=== PATIENT | female | born 1975 | race Two or more races ===

== ENCOUNTER 2024-04-01 22:18 | Emergency (ER) | payer BC, SELFPAY ==
[2024-04-01 22:29] VITALS: BP 138/90; PULSE 100; RESP 18; TEMP 37.1; O2SAT 99; BMI 36.3
--- NOTE | 2024-04-01 22:43 | PD.EDADULT ---
ED General RME/HPI General Chief complaint: General Adult/Misc Complain Stated complaint: NEEDLE STICK Time Seen by Provider: 04/01/24 22:24 Arrival date/time: 04/01/24 22:18 48 year old female present to emergency room with c/o of needle stick injury at work. LOCATION: finger SEVERITY: Symptoms are described as being severe with limitations on activities of daily living QUALITY: Symptoms are described as being dull or achy CONTEXT: needle stick injury DURATION/TIMING: The symptoms started approximately immediately prior to arrival ago and have been constant this then. ASSOCIATED SYMPTOMS: The patient is unable to identify any other associated symptoms. MODIFYING FACTORS: The patient is unable to identify any alleviating or aggravating symptoms. PERTINENT ROS: no fevers, no headache, no neck or chest pain, no unexplained nausea or vomiting, no focal neurological deficits REVIEW OF SYSTEMS: See History of Present Illness - with the exception of those mentioned in the history of present illness, all other systems reviewed and reported as negative GENERAL: In general the patient is awake, interactive, in an emergency department gurney. HEAD/EYES/EARS/NOSE/THROAT: normo-cephalic, atraumatic, mucus membranes are moist, anicteric, palpebral conjunctiva is pink, trachea is midline. CARDIOVASCULAR: regular rate and regular rhythm, no murmurs, heart sounds are not distant, strong pulses in all four extremities that are equal and symmetric bilateral upper and lower EXTREMITY: + left hand 2nd digit distal aspect, single puncture wound no nail plate involvement no tenderness to palpation over the long bones or large joints of the bilateral upper and lower extremities, no joint swelling, no joint erythema, no signs of trauma, no unilateral leg swelling and no peripheral edema. SKIN: warm, dry, well-perfused, no jaundice, no rash, no telangiectasias or petechia. PSYCH: calm, cooperative, no evidence of psychosis or agitation Related Data Home Medications ?Medication ?Instructions ?Recorded ?Confirmed metformin 500 mg tablet 500 mg PO QDAY 05/13/22 05/14/22 minoxidil 10 mg tablet 10 mg PO QDAY 05/13/22 05/14/22 Previous Rx's ?Medication ?Instructions ?Recorded ibuprofen 800 mg tablet 800 mg PO Q8H #21 tabs 05/14/22 Allergies Allergy/AdvReac Type Severity Reaction Status Date / Time No Known Allergies Allergy Verified 04/01/24 22:19 Course Course Course Narrative: Pt with needle stick exposure at work, patient whose needle it was does not have any known infectious diseases.? Acute hepatitis panel, HCG? and HIV panel was ordered today for baseline, pt to f/u with for repeat labs.? Discussed post exposure prophylaxis risks vs benefits, but exposure was approx 72 hours ago, and low risk, so patient declined.? F/u with workmen comp ? Return for Follow-up with occupational medicine or PCP for follow up labs in 6 weeks, 3 months, and 6 months. ? Quality Measures none Orders Category Date Time Status HCG,Qualitative Serum Stat Lab 04/01/24 22:40 Ordered HIV (1&2) Antibody Rapid Stat Lab 04/01/24 22:40 Ordered Hepatitis B Surface Ab Stat Lab 04/01/24 22:40 Ordered Hepatitis C Antibody Stat Lab 04/01/24 22:40 Ordered Vital Signs Vital signs: Vital Signs Temperature 98.7 F 04/01/24 22:29 Pulse Rate 100 04/01/24 22:29 Respiratory Rate 18 04/01/24 22:29 Blood Pressure 138/90 H 04/01/24 22:29 Pulse Oximetry (%) 99 04/01/24 22:29 Oxygen Delivery Method Room Air 04/01/24 22:29 MDM Patient data External records reviewed:: None Clinical information provided by:: patient Social determinants that could affect healthcare access:: none Patient has the following chronic illnesses:: none How is presenting disease/condition affected by chronic disease/condition?: no chronic disease Evaluation data The following diagnostics were reviewed and interpreted by me:: lab results Lab and/or radiology exams considered but not ordered:: none Interpretation Summary: exposure panel pending Medications Medications considered but not ordered:: none Medication administrations:: none Consultations Consultation(s) initiated? (list below): No Diagnosis Differential Diagnosis ED Complaint MDM: needle stick injury Most likely diagnosis given after review of the tests above:: needle stick injury Admission Indicated Admission indicated?: not indicated Explain why admission is indicated or not indicated:: none Admission Request Was there a request for admission?: No Disposition Plan Disposition Plan: Discharge Discharge Attestation Discharge Attestation: The patient and all family members were given an opportunity to ask questions and understood the discharge instructions. Discharge instructions specifically effects, indications for sooner follow up or return to the emergency department, and the expected course of current diagnosis. Patient condition: Stable Medical Decision Making Differential Diagnosis Differential Diagnosis: needle stick injury Discharge Plan Plan Patient Disposition: HOME (Self Care) Prescriptions/Referrals Prescriptions/Med Rec: No Action metformin 500 mg Tablet 500 mg PO QDAY minoxidil 10 mg Tablet 10 mg PO QDAY ibuprofen 800 mg tablet 800 mg PO Q8H Qty: 21 0RF Problem List Clinical Impression: Needle stick injury Patient/Caregiver Discharge Instructions Print Language: Niuean Stand Alone Forms: Blanche Award Info., Patient Portal Info Letter
[2024-04-01 23:56] LABS: HCG,Qualitative Serum Negative
[2024-04-02 01:57] LABS: HIV (1&2) Antibody Rapid Non-Reactive
[2024-04-04 02:46] LABS: Hepatitis B Surface Ab Reactive (Immune) (Immune); Hepatitis C Antibody Non Reactive (Non React)
== END 2024-04-01 22:59 | disposition home or self-care (01) ==
LOC: SERX 22:47
PROVIDERS: Physician Assistant; Emergency Provider Emergency Medicine; PCP Physician Assistant Medical
DX: Z77.21 Contact with and (suspected) exposure to potentially hazardous body fluids (principal); W46.0XXA Contact with hypodermic needle, initial encounter; Y99.0 Civilian activity done for income or pay
CPT/HCPCS: 36415; 84703; 86703; 86706; 86803; 99283

== ENCOUNTER → 2024-05-18 | Outpatient (CLI) | payer OTHER, SELFPAY ==
[2024-05-18 14:24] LABS: Syphilis Nonreactive (Nonreactive)
[2024-05-21 13:48] LABS: HCV RNA, PCR <15 NOT DETECTED IU/mL
[2024-05-23 06:59] LABS: HCV RNA, PCR Log IU <1.18 NOT DETECTED Log IU/mL; HIV Ag/Ab, 4th Gen NON-REACTIVE
== END | disposition home or self-care (01) ==
LOC: COPL 13:02
PROVIDERS: PCP Family Medicine; Referring Provider Physician Assistant; Visit Provider Physician Assistant
DX: Z77.21 Contact with and (suspected) exposure to potentially hazardous body fluids (principal)
CPT/HCPCS: 36415; 86780; 87389; 87522

== ENCOUNTER 2024-12-26 19:00 | Emergency (ER) | payer OTHER, SELFPAY ==
[2024-12-26 19:26] VITALS: BP 123/88; PULSE 107; RESP 20; TEMP 36.9; O2SAT 98; BMI 36.2
--- NOTE | 2024-12-26 19:32 | PD.EDADULT ---
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 that was used and the patient patient tetanus shot is not up-to-date Limitations: no limitations Related Data Home Medications ?Medication ?Instructions ?Recorded ?Confirmed metformin 500 mg tablet 500 mg PO QDAY 05/13/22 05/14/22 minoxidil 10 mg tablet 10 mg PO QDAY 05/13/22 05/14/22 Previous Rx's ?Medication ?Instructions ?Recorded ibuprofen 800 mg tablet 800 mg PO Q8H #21 tabs 05/14/22 doxycycline monohydrate 100 mg 100 mg PO BID #20 caps 12/26/24 capsule mupirocin 2 % topical ointment 1 applic topical TID #22 grams 12/26/24 Allergies Allergy/AdvReac Type Severity Reaction Status Date / Time No Known Allergies Allergy Verified 12/26/24 19:02 Review of Systems Review of Systems Systems Reviewed: All systems reviewed, normal except as documented Constitutional Constitutional: Reports system reviewed and no additional complaints, except as documented and Reports as per HPI Cardiovascular Cardiovascular: Reports system reviewed and no additional complaints, except as documented and Reports as per HPI Respiratory Respiratory: Reports system reviewed and no additional complaints, except as documented and Reports as per HPI Gastrointestinal Gastrointestinal: Reports system reviewed and no additional complaints, except as documented and Reports as per HPI Genitourinary Genitourinary: Reports system reviewed and no additional complaints, except as documented and Reports as per HPI Musculoskeletal Musculoskeletal: Reports system reviewed and no additional complaints, except as documented and Reports as per HPI Neurologic Neurologic: Reports system reviewed and no additional complaints, except as documented and Reports as per HPI Past Medical History Past Medical History NEUROLOGIC: Negative Neurological Disorders or Seizures CARDIAC: Negative Cardiac Disorders or Congestive Heart Failure RESPIRATORY: Negative Chronic Obstructive Pulmonary Disease (COPD) GASTROINTESTINAL: Negative Gastrointestinal Disorders GENITOURINARY: Negative Genitourinary Disorders or Renal Disease REPRODUCTIVE: Positive Previous Pregnancies MUSCULOSKELETAL: Negative Musculoskeletal Disorders ENDOCRINE: Positive Diabetes Mellitus Type 2; Negative Diabetes Mellitus Type 1 HEMATOLOGIC: Positive Anemia OTHER HISTORY: Positive Chicken Pox; Negative Autoimmune Disease, Blood Transfusions, Blood Transfusion Reaction, Anesthesia Reactions, MRSA or Cancer Family History FAMILY HISTORY: Positive Family Cancer (mom, dad) and Family Surgery; Negative Family Psychiatric Problems, Family Respiratory Disorders, Family Cardiac Disorders, Family Gastrointestinal Problems or Family Anesthesia Reaction Surgical History SURGICAL: Positive Section (x4); Negative Cardiac Surgery, Endocrine Surgery, Ear Surgery, Joint Replacement or Neurologic Surgery Social History SMOKING STATUS: Never smoker ED Exam General Limitations: Present no limitations General appearance: Present alert, in no apparent distress and other (Patient is awake alert oriented not in distress nontoxic looking well-hydrated well-nourished) Head Head exam: Present atraumatic, normocephalic and normal inspection Eye Eye exam: Present normal appearance, PERRL and EOMI ENT ENT exam: Present normal exam, normal oropharynx and mucous membranes moist Neck Neck exam: Present normal inspection, full ROM and trachea midline Chest Chest inspection: Present normal inspection and symmetric chest wall rise Respiratory Respiratory exam: Present normal lung sounds bilaterally; Absent respiratory distress, wheezes, stridor, accessory muscle use or prolonged expiratory phase Cardiovascular Cardiovascular exam: Present regular rate, normal rhythm and normal heart sounds; Absent bradycardia, tachycardia, irregular rhythm, systolic murmur or diastolic murmur Abdominal Exam Abdominal exam: Present soft and normal bowel sounds Extremities Exam Extremities exam: Present normal inspection and full ROM Back Exam Back exam: Present normal inspection and full ROM Neurological Exam Neurological exam: Present alert, oriented X3, CN II-XII intact, normal gait and reflexes normal; Absent motor sensory deficit Psychiatric Psychiatric exam: Present normal affect and normal mood Skin Skin exam: Present warm, dry, intact, normal color and other (Noted punctured wound on the left index finger no bleeding no foreign body no tendon or bone injury ROM intact neurovascular intact) Course Quality Measures none Orders Category Date Time Status HIV RAPID [HIV (1&2) Antibody Rapid] Stat Lab 12/26/24 19:29 Ordered Hepatitis B Core Antibody IgM Stat Lab 12/26/24 19:29 Ordered Hepatitis B Surface Ab Stat Lab 12/26/24 19:29 Ordered Hepatitis C Antibody Stat Lab 12/26/24 19:29 Ordered TET,DIP/PERT AC (Adult)-Tdap [Boostrix Adult (Tdap) Med 12/26/24 19:29 Once Vacc] 0.5 ml IMI .ONCE ONE Vital Signs Vital signs: Vital Signs Temperature 98.4 F 12/26/24 19:26 Pulse Rate 107 H 12/26/24 19:26 Respiratory Rate 20 12/26/24 19:26 Blood Pressure 123/88 H 12/26/24 19:26 Pulse Oximetry (%) 98 12/26/24 19:26 Oxygen Delivery Method Room Air 12/26/24 19:26 Oxygen saturation 98% in room air normal Discharge Plan Plan Patient Disposition: HOME (Self Care) Patient condition on transfer: Stable Prescriptions/Referrals Prescriptions/Med Rec: New doxycycline monohydrate 100 mg capsule 100 mg PO BID Qty: 20 0RF mupirocin 2 % ointment 1 applic topical TID Qty: 22 0RF No Action metformin 500 mg Tablet 500 mg PO QDAY minoxidil 10 mg Tablet 10 mg PO QDAY ibuprofen 800 mg tablet 800 mg PO Q8H Qty: 21 0RF Problem List Clinical Impression: Needlestick injury accident, Puncture wound of left index finger Patient/Caregiver Discharge Instructions Education Materials: ED Puncture Wound (General) Additional Instructions: Follow-up with your primary care physician in 2 days for reevaluation worsening symptoms or any emergent concerns such as redness swelling discharge from the wound pain fever chills return to the emergency room immediately or call 911 keep the wound clean and dry finish the course of antibiotic Print Language: Tajik Stand Alone Forms: Blanche Award Info., Patient Portal Info Letter PA/THEATRE PROGRAM DIRECTOR Supervising Physician PA/THEATRE PROGRAM DIRECTOR Supervising Physician: Dr. 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 that was used and the patient patient tetanus shot is not up-to-date physical examination patient is awake alert oriented not in distress nontoxic looking well-hydrated well-nourished noted a puncture to under the left index finger no bleeding no bone or foreign body noted no injury no tendon injury noted ROM intact neurovascular intact wound was cleaned with normal saline and covered with triple antibiotic ointment and nonadherent gauze hepatitis and HIV testing was drawn and sent to the lab patient was given Tdap here in the emergency room and was given doxycycline to prevent infection follow-up with PCP in 2 days for reevaluation worsening symptoms and emergent concern return precaution in the ER was advised Patient was discharged with comfortable condition walking with stable gait. Patient verbalized no further complains explained diagnosis and answered patient question. Patient is comfortable with the proposed management plan including the need to follow up with his/her primary care physician and any specialist if applicable Discussed patient for any urgent condition or worsening sx, He/She needed to go to emergency room immediately or call 911. Patient acknowledge the responsibility to follow up as instructed and to monitor her/his symptoms. For any persistence of the symptoms for more than 3-5 days return precaution advised. Discussed the result of the test and was given printed discharge instruction Clinical Information Provided by: none Medical Records reviewed [facility] Meds/Rx considered, not ordered describe: Given Labs/Rad/Tests considered, not ordered Describe: Drawn Chronic Illness/Social Conditions which may negatively complicate care or outcome(s)-explain: None or not applicable EKG EKG not done Labs Lab(s) Interpretation(s): Pending result Imaging Imaging interpretation: none Medication Administration(s) none (Given) Medication Administration History Diphtheria/Tetanus/Acell Pertussis (Diphth,Pertuss(Acell),Tet Vac 0.5 Ml Syr- Adult) 0.5 ml IMi .ONCE ONE Stop: 12/26/24 19:30 Given Diagnosis Differential Diagnosis ED Complaint MDM: Needlestick injury Diagnoses ruled out and/or further discussions: Needlestick injury
[2024-12-26] MEDS: DIPHTH,PERTUSS(ACELL),TET VAC 0.5 ML SYR- ADULT IMi (20:20)
[2024-12-26 20:40] LABS: HIV (1&2) Antibody Rapid Non-Reactive
[2024-12-26 21:16] LABS: Hepatitis B Core Antibody IgM Non Reactive (Non React); Hepatitis B Surface Ab Reactive (Immune) (Immune); Hepatitis C Antibody Non Reactive (Non React)
== END 2024-12-26 20:34 | disposition home or self-care (01) ==
PROVIDERS: Nurse Practitioner Family; Emergency Provider Emergency Medicine; PCP Physician Assistant Medical
DX: S61.231A Puncture wound without foreign body of left index finger without damage to nail, initial encounter (principal); W46.0XXA Contact with hypodermic needle, initial encounter; Y93.F9 Activity, other caregiving; Y99.0 Civilian activity done for income or pay; Z23 Encounter for immunization
CPT/HCPCS: 36415; 86703; 86705; 86706; 86803; 90471; 90715; 99283

== ENCOUNTER 2025-01-05 09:20 | Day surgery (SDC) | payer BC, SELFPAY ==
--- NOTE | 2025-01-03 06:30 | EKG_ITS ---
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
[2025-01-03 09:10] VITALS: BMI 36.6
[2025-01-03 10:35] LABS: Basophils # (Auto) 0.0 Thou/mm3 (0.0-0.2); Basophils % (Auto) 1 % (0-2.5); Eosinophils # (Auto) 0.1 Thou/mm3 (0.0-0.5); Eosinophils % (Auto) 2 % (0-10); Hematocrit 31.9 % (36.0-46.0); Hemoglobin 10.0 g/dL (12.0-16.0); Immature Granulocytes Auto 0.01 Thou/mm3 (0.00-0.00); Lymphocytes # (Auto) 2.2 Thou/mm3 (1.0-4.8); Lymphocytes % (Auto) 36 % (10-50); Mean Corpuscular HGB Conc 31.3 g/dl (31.0-37.0); Mean Corpuscular Hemoglobin 22.9 pg (25.0-35.0); Mean Corpuscular Volume 73 fL (80-100); Monocytes # (Auto) 0.5 Thou/mm3 (0.0-0.8); Monocytes % (Auto) 8 % (0-12); Neutrophils # (Auto) 3.3 Thou/mm3 (1.8-7.7); Neutrophils % (Auto) 53 % (37-80); Nucleated Red Blood Cell # 0.00 Thou/mm3 (0.00-0.00); Nucleated Red Blood Cell % 0 /100 WBC (0); Platelet Count 365 Thou/mm3 (140-440); RDW Standard Deviation 43.6 fL (36.4-46.3); Red Blood Count 4.36 Miln/mm3 (4.00-5.20); White Blood Count 6.2 Thou/mm3 (3.6-11.0)
[2025-01-03 10:46] LABS: Alanine Aminotransferase 14 U/L (10-49); Albumin, Serum 4.6 gm/dL (3.5-5.0); Albumin/Globulin Ratio 1.5 (1.2-2.2); Alkaline Phosphatase 85 U/L (46-116); Anion Gap 10 (7-16); Aspartate Amino Transferase 19 U/L (0-34); BUN/Creatinine Ratio 20 Ratio (12-20); Bilirubin,Total 0.7 mg/dL (0.3-1.2); Blood Urea Nitrogen 12 mg/dL (9-23); Calcium 9.4 mg/dL (8.3-10.6); Calcium (Corrected) 9.4 mg/dL (8.5-10.1); Carbon Dioxide 27.0 mMol/L (20.0-31.0); Chloride 102 mMol/L (98-107); Creatinine (Component) 0.6 mg/dL (0.6-1.3); Estimated Creatinine Clearance 128.0 mL/min (>60); Globulin 3.1 gm/dL (2.3-3.5); Glucose 94 mg/dL (74-106); Osmolality,Calculated 277 (275-295); Potassium 4.0 mMol/L (3.4-5.1); Sodium 139 mMol/L (136-145); Total Protein 7.7 gm/dL (5.7-8.2); eGFR > 60 See Note
[2025-01-03 10:48] LABS: INR 0.9 (0.9-1.3); Partial Thromboplastin Time 25.9 Seconds (22.0-36.0); Prothrombin Time 10.1 Seconds (9.0-12.2)
[2025-01-05] VITALS (7 sets, daily range): BP systolic 106–131; BP diastolic 58–90; PULSE 73–88; RESP 12–20; TEMP 36.1–36.3; O2SAT 95–100; BMI 35.5
[2025-01-05] MEDS: RINGERS LACTATED 1000 ML 1,000 ML 20 ML IV (10:20)
--- NOTE | 2025-01-05 12:26 | PD.SUROPNT ---
Date of Procedure 01/05/25 Pre Op Diagnosis Symptomatic varicose veins bilateral lower extremities Post Op Diagnosis Same as pre-op diagnosis Procedure Radiofrequency endovenous ablation of the greater saphenous vein plus an additional duplicated saphenous vein in the right lower extremity Radiofrequency endovenous ablation of the greater saphenous vein left lower extremity Varicose vein excisions right lower extremity through 42 separate incisions Varicose vein excisions left lower extremity through 14 separate incisions The Findings Successful ablation of both duplicated greater saphenous vein to the right lower extremity with no evidence of thrombus in the saphenofemoral junction of the common femoral vein Successful ablation of the left greater saphenous vein with no evidence of thrombus in the saphenofemoral junction or greater saphenous vein All marked varicose veins in the right lower extremity were successfully excised or disrupted All marked varicose veins in the left lower extremity were successfully excised or disrupted Anesthesia other (Laryngeal mask anesthesia) Pathology / specimen Other (Bilateral lower extremity varicose veins) Estimated Blood Loss 75 Condition Stable Disposition PACU Surgeon Pelon Cowan MD Surgical Staff Operation Date: 01/05/25 11:30 Case Staff Anesthesiologist: David Vincent RN First Assistant: Berkley Palmer
--- NOTE | 2025-01-05 12:56 | SUR.PHASEI ---
Pt. arrived to recovery via gurney, eyes closed, responds to verbal commands, VSS, no c/o pain or nausea at this time, lung sounds clear, equal expansion lucy., pt. receiving 10 liters 02 via oxymask, dressing to lucy. legs, steri-strips, abd. pad, kerlix roll and diana wrap intact, no active bleeding noted, pedal pulses present lucy., report received from Dr. Vincent and Jennifer JACOBSEN.
[2025-01-05] MEDS: fentaNYL CIT INJ 50 mCg/ML AMP 2ML 25 MCG IVP (13:24)
--- NOTE | 2025-01-05 13:30 | SUR.PHASEII ---
1330: Pt. AAOx4, vitals stable, breathing unlabored, no complaint of pain or nasuea, dressing to bilateral legs CDI, no active bleed noted, bilateral dorsalis pedis pulses strong and regular, report received from Yary JACOBSEN.
--- NOTE | 2025-01-05 13:32 | SUR.PHASEII ---
Pt. is sitting up tolerating ice chips, dressing to lucy. legs CDI.
--- NOTE | 2025-01-05 13:50 | SUR.PHASEII ---
1350: Pt. AAOx4, vitals stable, breathing unlabored, no complaint of pain or nausea, dressing to bilateral legs CDI, no active bleed noted, had pt. stand for two minutes with full weight on both legs and assessed for bleeding, no active bleed noted. Pt. tolerated sips of water well, pt. ambulated to wheelchair with steady gait and no assist, no complications. Gave discharge instructions to the pt. and her ride, both verbalized understanding and had no further questions. Pt. left with all personal belongings.
[2025-01-05] MEDS: ONDANSETRON INJ 2 MG/ML INJ 2 ML 4 MG IVP (13:58)
== END 2025-01-05 13:50 | disposition home or self-care (01) ==
PROVIDERS: Anesthesiology; PCP Physician Assistant Medical; Referring Provider Surgery Vascular Surgery; Visit Provider Surgery Vascular Surgery
PROC: (CPT 36475; principal; 2025-01-05 11:30)
DX: I83.813 Varicose veins of bilateral lower extremities with pain (principal); Z01.810 Encounter for preprocedural cardiovascular examination
CPT/HCPCS: 36475; 37765; 37766; 36415; 80053; 85025; 85610; 85730; 93005; A4217; A4649; C1888; C1894; J0131; J1100; J1885; J2250; J2405; J2704; J3010; J3490; J7050; J7120; J7999